=== PATIENT | female | born 1940 | race Caucasian/White ===

== ENCOUNTER 2016-11-07 11:55 | Emergency (ER) | payer MEDICARE, OTHER ==
[2016-11-07] MEDS ORDERED: IOPAMIDOL 370 (76%) 100 ML VIAL IV ONE (11:56)
[2016-11-07] MEDS ORDERED: LACTATED RINGERS 1,000 ML ONE (14:06)
[2016-11-07 14:30] LABS: ABSOLUTE NEUTROPHIL COUNT 2.7 K/mm3 (1.8-7.7); BASO % 0.6 % (0.2-1.0); EOS # 0.2 (0.0-0.5); EOS % 4.1 % (0.9-2.9); HEMATOCRIT 41.9 % (37.0-47.0); HEMOGLOBIN 14.2 gm/l (12.0-16.0); IMM NEUT% 0.2 % (0-1); LYMPH # 1.4 (1.0-4.8); LYMPH % 29.2 % (15-45); MEAN CELL VOLUME 88.6 fl (81.0-99.0); MEAN CORPUSCULAR HGB CONC 33.9 g/dl (33.0-37.0); MEAN PLATELET VOLUME 11.6 fl (7.4-10.4); MONO # 0.4 (0.0-0.8); MONO % 7.8 % (4-12); NEUT % 58.1 % (43-75); PLATELET COUNT 111 K/mm3 (130-400); RED CELL DISTRIBUTION WIDTH 13.1 % (11.5-14.5)
[2016-11-07 14:57] LABS: ALB/GLOB RATIO 0.8 (>1.0); ALBUMIN 3.2 gm/dL (3.5-5.7); CALCIUM 9.3 mg/dL (8.6-10.3); MAGNESIUM 1.6 mg/dL (1.9-2.7)
[2016-11-07] MEDS ORDERED: MAGNESIUM SULFATE 2 G/50 ML 50 ML IV ONE (15:30)
--- NOTE | 2016-11-07 16:00 | CT ---
Exam Type: ABD/PELVIS W/ CON Date and Time: 11/07/2016 1:01 PM Clinical information: Abdominal pain with diarrhea. Comparison: 12/11/2015. Procedure: Imaging device: [facility] [address] scanner 1 mm axial images were obtained through the abdomen and pelvis. Stacked reconstructed 3, 4 and 5 mm images were photographed in the axial coronal and sagittal planes. No oral contrast was utilized for this examination. 100 ml of Isovue-[id number] was injected intravenously. Exam: with intravenous contrast. FINDINGS: Lung bases: There is linear peripheral scarring or fibrosis identified within both pulmonary bases. No effusion or pneumothorax is observed. Liver: The liver appears to be of diffusely decreased attenuation. There appears to be a mildly irregular peripheral hepatic contour raising concern for findings of underlying hepatic cirrhosis. Spleen: The spleen is enlarged. 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 Gallbladder: Surgically absent. Pancreas: Normal without enlargement or evidence of adjacent inflammatory changes. Adrenal glands: Normal without enlargement or evidence of adjacent inflammatory changes. Abdominal aorta: Atherosclerotic vascular calcification seen with no focal aneurysm visualized. Kidneys: Bilateral extrarenal pelves are suggested. The renal enhancement is symmetric. Bowel structures: The visualized bowel is of normal caliber without evidence of dilatation or obstruction. No free fluid or mesenteric inflammatory changes are identified. Appendix: Not well visualized, though no pericecal inflammatory stranding is identified. Bladder: The bladder contour is appropriate. There is no discrete intraluminal mass visualized on this examination. The bladder is moderately distended. Hernia: A fat filled umbilical hernia is present. Adenopathy: No significant enlarged adenopathy is visualized. Osseous structures: Lumbar degenerative changes are present, particularly at L3-4, L4-5 and L5-S1. Pelvic structures: No discrete pelvic abnormalities are visualized in this examination. IMPRESSION: 1. Findings most commonly associated with diffuse fatty infiltration of the liver. There is also a subtle irregular peripheral hepatic contour which may reflect findings of underlying cirrhosis. 2. Splenomegaly. 3. 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 4. Nonvisualization of the appendix though no pericecal inflammatory stranding is visualized. 5. Bilateral extrarenal pelves. 6. A fat filled umbilical hernia. 7. Moderate distention of the bladder. 8. Prior cholecystectomy. 9. Prominent lumbar degenerative changes at L3-4, L4-5 and L5-S1.
== END 2016-11-07 16:52 | disposition home or self-care (01) ==
LOC: ED 11:55
DX: R10.9 Unspecified abdominal pain (principal); R19.7 Diarrhea, unspecified; E83.42 Hypomagnesemia; J43.9 Emphysema, unspecified
CPT/HCPCS: 83690; 85025; 80053; 83735; 74177; 99284 ×2; 96361; 96365; J7120; J3475; Q9967